=== PATIENT | male | born 1960 ===

== ENCOUNTER 2024-08-19 19:04 | Emergency (ER) | payer MEDICARE, OTHER, SELFPAY ==
[2024-08-19 19:07] VITALS: BP 150/100
[2024-08-19 19:27] LABS: % Basophils 0.3 % (0-2); % Eosinophils 1.3 % (0-6); % Immature Granulocytes 0.2 % (0-0.5); % Lymphocytes 35.9 % (20.5-51.1); % Monocytes 12.6 % (1.7-9.3); % Neutrophils 49.7 % (42.2-75.2); Absolute Eosinophils 0.1 10^3/uL (0-0.7); Absolute Lymphocytes 2.1 10^3/uL (1.2-3.4); Absolute Monocytes 0.8 10^3/uL (0.1-0.6); Hematocrit 38.6 % (39.0-52.0); Hemoglobin 13.6 g/dL (13.0-18.0); Mean Corp Hgb Conc. 35.2 g/dL (33.0-37.0); Mean Corpuscular Hgb 33.7 pg (27.0-31.0); Mean Corpuscular Volume 95.5 fL (80.0-94.0); Mean Platelet Volume 8.9 fL (7.4-10.4); Nucleated Red Blood Cells % 0 % (-); Platelet Count 217 10^3/uL (130-400); Red Blood Cell Count 4.04 10^6/uL (4.70-6.10); Red Cell Dist. Width 12.9 % (11.5-14.5)
[2024-08-19 19:47] LABS: ALT (SGPT) 27 U/L (0-50); AST (SGOT) 29 U/L (17-59); Albumin 4.3 g/dl (3.5-5.0); Alkaline Phosphatase 44 U/L (38-126); Blood Urea Nitrogen 17 mg/dl (9-20); Calcium 8.6 mg/dl (8.4-10.2); Carbon Dioxide 26 mmol/L (22-30); Chloride 97 mmol/L (98-107); Glucose 100 mg/dl (70-99); Lipase 154 U/L (23-300); Potassium 3.9 mmol/L (3.5-5.1); Sodium 130 mmol/L (135-145); Total Bilirubin 0.4 mg/dl (0.2-1.3); Total Protein 6.8 g/dl (6.3-8.2); eGFR > 60.00
[2024-08-19 22:06] VITALS: BP 140/90
[2024-08-19 22:07] VITALS: BMI 26.7
[2024-08-20 00:01] LABS: Urine Albumin Negative (Neg - Trace); Urine Bilirubin Negative (Negative); Urine Character Clear (Clear); Urine Color Yellow; Urine Glucose Negative (Negative); Urine Ketone Negative (Negative); Urine Leukocyte Negative (Negative); Urine Nitrite Negative (Negative); Urine Occult Blood Negative (Negative); Urine Specific Gravity 1.005 (<1.030); Urine Urobilinogen Negative (Neg - 1+)
--- NOTE | 2024-08-20 00:37 | ED.GENMED ---
History of Present Illness
General
Chief Complaint: Abdominal Pain
Source: patient
Exam Limitations: none
Time Seen by Provider: 08/19/24 23:02
Nursing documentation reviewed up to this point in time: agreed with
History of Present Illness
History of Present Illness:
64-year-old male presents with intermittent discomfort in right groin. Patient states that symptoms have been ongoing for a few months. He states symptoms seem to be progressively worsening and describes a generalized discomfort feeling in the right
groin area. He now notices a palpable bulge, which is much worse with standing. He apparently initially followed with his primary care who did not see any evidence of hernia.
Tonight � patient felt somewhat chilly however denies fever. He denies any associated nausea or vomiting. He has not noticed any redness or changes to the skin in the right groin. He denies any dysuria or changes in bowel habits. His appetite is
normal.
He had contacted the general surgeon for an outpatient appt however does not have an appointment scheduled until mid August.
Review of Systems
Review of Systems
Allergies reviewed?: Yes
All Other Systems: ROS reviewed and negative except as documented in HPI and ROS
Phy Exam
Physical Exam
Physical Exam:
Vitals: Hypertensive, otherwise vital signs stable. Afebrile
General: Patient is well appearing, no acute distress. Nontoxic appearing
Skin: Warm and dry, no rashes or lesions
Head: Normocephalic, atraumatic
Eyes: Sclera nonicteric.
Throat: Protecting airway
Neck: Normal ROM
Cardiac: Regular rate and rhythm
Pulm: Normal respiratory effort, no wheezes, rales, rhonchi heard on exam
.
Abdomen: Palpable bulge in right groin medial to inguinal crease; easily reducible without any tenderness or overlying warmth/ erythema. Abdomen soft and nontender without areas of focal tenderness. Specifically no tenderness at McBurneys point.
Extremities: No evidence of cyanosis or edema. Palpable DP pulses bilaterally.
Neuro: AAOx3. Grossly intact
Psychiatric: Normal affect.
Course
Orders/Labs/Results
Orders:
Orders
08/19/24 19:19
Complete Blood Count/With Diff Urgent
Comprehensive Metabolic Panel Urgent
Lipase Urgent
08/19/24 23:54
Urinalysis Reflex To Culture Urgent
Date Specimen was Collected: 08/19/24
Time Specimen was Collected: 23:20
Abnormal Lab Results
08/19/24
19:19
RBC 4.04 L 10^6/uL
(4.70-6.10)
Hct 38.6 L %
(39.0-52.0)
MCV 95.5 H fL
(80.0-94.0)
MCH 33.7 H pg
(27.0-31.0)
Absolute Monos (auto) 0.8 H 10^3/uL
(0.1-0.6)
Monocytes % 12.6 H %
(1.7-9.3)
Sodium 130 L mmol/L
(135-145)
Chloride 97 L mmol/L
(98-107)
Glucose 100 H mg/dl
(70-99)
08/19/24 19:19
08/19/24 19:19
Vital Signs
Initial and Last Documented VS:
Initial Vital Signs
Temp Pulse Resp BP Pulse Ox
97.9 F 75 20 150/100 100
08/19/24 19:07 08/19/24 19:07 08/19/24 19:07 08/19/24 19:07 08/19/24 19:07
Last Documented Vital Signs
Temp Pulse Resp BP Pulse Ox
97.9 F 75 20 140/90 98
08/19/24 19:07 08/19/24 19:07 08/19/24 19:07 08/19/24 22:06 08/20/24 00:37
MDM/Problems Addressed
Differential Diagnosis Includes:
Not limited to: inguinal hernia, femoral hernia, muscle strain, ureterolithiasis, cystitis, appendicitis, etc
MDM/Problems Addressed:
64 year-old male with history as documented presenting with two months of progressively worsening however intermittent right groin discomfort. No associated infection symptoms including fever, abdominal pain, vomiting, dysuria, testicular pain, etc.
Symptoms exacerbated by standing. Vital signs as above. On exam � patient has a palpable right inguinal hernia, which is easily reducible. There is no evidence of incarceration or strangulation. No overlying erythema or warmth. His abdomen is soft
without any focal tenderness, specifically no tenderness at McBurneys point.
Sometimes consistent with inguinal hernia. No evidence of associated infection, incarceration, or strangulation. Basic labs were sent prior to my evaluation without any clinically significant abnormalities. Sodium was found to be be somewhat low at
130 however patient is asymptomatic.
Ultimately � do not feel any imaging indicated at this time. No indication for admission to hospital.
Patient advised to follow-up with general surgery outpatient for further evaluation/management and likely surgical correction of inguinal hernia. Very strict return precautions discussed including any evidence of infection, strangulation, or
incarceration. Advised to avoid straining or heavy lifting. Patient comfortable with plan. Stable for discharge.
Patient left prior to receiving printed discharge instructions however I did discuss them at length with him while in room.
Chronic conditions affecting care:
N/A
Acute Exacerbation and/or Progression of Chronic Illness:
N/A
*Pulse Oximetry
SaO2: 98
Oxygen Mode of Delivery: Room air
Patient hypoxic: no
*EKG
Interpreted by ED Provider?: NA
*Tobacco Stemmer Interpretation
Rate: Tobacco Stemmer- N/A
*Critical Care Note
Total Time (30-74mins, 75-104mins- exclusive of procedures): Not Applicable
ED Attending Note
-
Portions of this chart may have been created with voice recognition software.� Occasional wrong word or��sound alike� substitutions may have occurred due to the inherent limitations of voice recognition software.
Discharge Plan
Departure
Patient Disposition: Home (Routine Discharge)
Patient with high blood pressure during this ER visit?: Yes
Discharge Problem:
Reducible right inguinal hernia
Instructions: Groin hernia repair - Discharge instructions, BLOOD PRESSURE
Referrals:
Angeles Montiel CRNP [Family Provider, Family Practice]
Milton Benjamin MD [Active, Surgical] - Next open appointment
Activity Restrictions/Additional Instructions:
RETURN TO THE EMERGENCY DEPARTMENT WITH ANY PERSISTENT/INTRACTABLE PAIN, IRREDUCIBLE HERNIA, CONSTIPATION, VOMITING, FEVERS, REDNESS OR WARMTH IN AFFECTED AREA, OR ANY OTHER CONCERNS
-As discussed- you were found to have an inguinal hernia on exam today. I suspect this is likely the cause of your symptoms today. It was easily reducible.
-You will need to follow-up with general surgery for further evaluation/management as this will likely require a surgical repair. Please void any heavy lifting or straining until cleared by general surgery.
-As discussed- your sodium level was low in the emergency department. Please have this rechecked with primary care to ensure is trending up.
-Follow-up with primary care / general surgery for further evaluation/ management and to ensure that symptoms are improving
Monitor your symptoms closely and return to the emergency department with any acute worsening/ new symptoms or any signs of infection
Interventions
Interventions:
*Risk Screen - Suicide Last Done: 08/19/24 19:07
*General Assessment Last Done: 08/19/24 19:07
*Neglect/Abuse Screening Last Done: 08/19/24 19:07
*ED- Fall Risk Assessment Last Done: 08/19/24 22:07
*ED COVID-19 Vaccine History Last Done: 08/19/24 22:07
*Nursing Disposition Last Done: 08/19/24 23:40
EK-[id number]-Iwidltmyvi Assessment Last Done: 08/19/24 22:07
Discharge Date and Time
Discharge Date/Time: 08/19/24 23:40
Print Language: BRUNEIAN
== END 2024-08-19 23:40 | disposition home or self-care (01) ==
LOC: EMR 19:04
PROVIDERS: Physician Assistant; Student in an Organized Health Care Education/Training Program; EMERGENCY PHYSICIAN Emergency Medicine; FAMILY PHYSICIAN Nurse Practitioner
DX: K40.90 Unilateral inguinal hernia, without obstruction or gangrene, not specified as recurrent (principal)
CPT/HCPCS: 99283; 80053; 81003; 83690; 85025

== ENCOUNTER → 2024-09-20 07:38 | Outpatient (REF) | payer MEDICARE, OTHER, SELFPAY ==
[2024-09-20 08:57] LABS: Hematocrit 40.5 % (39.0-52.0); Hemoglobin 13.9 g/dL (13.0-18.0); Mean Corp Hgb Conc. 34.3 g/dL (33.0-37.0); Mean Corpuscular Volume 96.9 fL (80.0-94.0); Platelet Count 252 10^3/uL (130-400); Red Cell Dist. Width 12.8 % (11.5-14.5)
[2024-09-20 09:49] LABS: Blood Urea Nitrogen 14 mg/dl (9-20); Calcium 9.2 mg/dl (8.4-10.2); Carbon Dioxide 29 mmol/L (22-30); Chloride 107 mmol/L (98-107); Glucose 100 mg/dl (70-99); Potassium 4.6 mmol/L (3.5-5.1); Sodium 141 mmol/L (135-145); eGFR > 60.00
== END ==
LOC: SDSPAT 07:38
PROVIDERS: ATTENDING PHYSICIAN Surgery; FAMILY PHYSICIAN Nurse Practitioner
DX: Z01.818 Encounter for other preprocedural examination (principal)
CPT/HCPCS: 36415; 80048; 85027; 93005

== ENCOUNTER 2024-10-02 06:06 | Day surgery (SDC) | payer MEDICARE, OTHER, SELFPAY ==
[2024-09-20 14:15] VITALS: BMI 23.5
[2024-10-02] VITALS (8 sets, daily range): BP systolic 135–158; BP diastolic 83–98; BMI 23.5
[2024-10-02] MEDS: TYLENOL 1000 MG PO (10:31)
[2024-10-02] MEDS: NORMOSOL-R/PLASMALYTE-A 1000 IV (10:32)
[2024-10-02] MEDS: ZOFRAN 4 MG IV (12:41)
[2024-10-02] MEDS: DILAUDID 0.25 MG IV (12:41)
== END 2024-10-02 14:09 | disposition home or self-care (01) ==
LOC: SDS 06:06
PROVIDERS: ATTENDING PHYSICIAN Surgery; FAMILY PHYSICIAN Nurse Practitioner
DX: K40.90 Unilateral inguinal hernia, without obstruction or gangrene, not specified as recurrent (principal)
CPT/HCPCS: 49650; C1781